=== PATIENT | female | born 1990 | race Caucasian/White ===

== ENCOUNTER 2018-04-08 11:42 | Emergency (ER) | payer SELFPAY ==
[~2018-04-08] VITALS: Ht 162.6 cm; Wt 61.0 kg
[2018-04-08 11:49] VITALS: BP 101/58
[2018-04-08 12:57] LABS: CULTURE INDICATED? YES; MICROSCOPIC INDICATED
== END 2018-04-08 12:57 | disposition home or self-care (01) ==
LOC: ED 12:42
DX: N30.00 Acute cystitis without hematuria (principal)
CPT/HCPCS: 81001; 81025; 87086; 99284